=== PATIENT | male | born 1990 | race Caucasian/White ===

== ENCOUNTER 2024-03-04 17:57 | Inpatient (IN) | payer OTHER, SELFPAY ==
[2024-03-04 11:29] VITALS: BP 134/92
[2024-03-04 11:43] VITALS: BMI 23.1
--- NOTE | 2024-03-04 13:54 | ED.GENMED ---
History of Present Illness
<Zack Merida Jr., PA-C - Last Filed: 03/05/24 09:18>
General
Chief Complaint: Skin Problem
Source: patient and physician
Exam Limitations: none
Time Seen by Provider: 03/04/24 12:27
Nursing documentation reviewed up to this point in time: agreed with
History of Present Illness
History of Present Illness:
33-year-old male past with history of ADHD depression and substance abuse presenting to the emergency department today with concerns of potential infection to his bilateral soles of his feet that occurred after he stepped on a large amount of thorns
and a thorn johnson went to his primary care doctor few days ago where they tried to take most of the thorns out and started him on Keflex he has been taking this over the past 3 days. He is noted some redness swelling warmth and additional discomfort
to the area. He has been walking.
Past History
<Zack Merida Jr., PA-C - Last Filed: 03/05/24 09:18>
Past History
ED Past Medical History: Psychiatric (ADHD, depression, sleep disorder)
ED Past Surgical History: None
Patient has exhibited threatening behavior?: No
Social History
Tobacco: Non-smoker
Alcohol: Occasional
Drug: Marijuana
Review of Systems
<Zack Merida Jr., PA-C - Last Filed: 03/05/24 09:18>
Review of Systems
Allergies reviewed?: Yes
All Other Systems: ROS reviewed and negative except as documented in HPI and ROS
Phy Exam
<Zack Merida Jr., PA-C - Last Filed: 03/05/24 09:18>
Physical Exam
Physical Exam:
GENERAL: Alert , in no apparent distress
EYE: pupils equal and reactive
NECK: Supple, no significant adenopathy.
ENT: o/p clr, mmm.
CARDIAC: Regular rate and rhythm .
LUNGS: Clear breath sounds bilaterally, no acute respiratory distress, no wheezes/rales/rhonchi
ABDOMEN: Soft, without focal tenderness, no r/g, no cvat
NEUROLOGICAL: Alert and oriented, no focal neuro deficits
SKIN: Warm and dry, skin intact.
MUSCULOSKELETAL: No edema, well perfused.
PSYCH: Normal and appropriate interaction.
Patient's left foot on the sole at the midportion of the foot has an area of roughly 3 cm in diameter redness and warmth as well as tenderness with no specific fluctuance or induration centralized area with some skin breakdown no active purulent
drainage. Few smaller areas of redness with mild tenderness at site of what appears to be foreign body potentially the thorn that was described. Additionally on the patient's right foot at the midfoot there is a small area roughly 1 cm in diameter
with a central foreign body that is red warm and tender to palpation. No purulent drainage.
Course
<Zack Merida Jr., PA-C - Last Filed: 03/05/24 09:18>
Orders/Labs/Results
Orders:
Orders
03/04/24 Lunch
Regular
At Your Request: Full Participation
Does patient need a safe tray?: No
03/04/24 13:08
Low Ext No Joint, Left W/O and With MR [MR Ltle No Joint W/o And With] Urgent
Comment:
Reason For Exam: Bilateral foot infections/foreign bodies w and w/o
Recent pill cam endoscopy?: No
03/04/24 13:10
Low Ext No Joint, Right W/O And With MR [MR Rtle No Joint W/o And With] Urgent
Comment:
Reason For Exam: Bilateral foot infections/foreign bodies w and w/o
Recent pill cam endoscopy?: No
03/04/24 13:59
Alcohol Urgent
CBC/With Diff [Complete Blood Count/With Diff] Urgent
CMP [Comprehensive Metabolic Panel] Urgent
Glycohemoglobin (HgbA1c) Urgent
03/04/24 14:01
Ampicillin/Sulbactam 3 G [Unasyn] 3 gm 0.9% Sodium Chloride 100 ml [Nss] 100 ml IV NOW
03/04/24 15:37
Add On- LAB Routine
Tests Added?: a1c
03/04/24 16:00
Ampicillin/Sulbactam 3 G [Unasyn] 3 gm 0.9% Sodium Chloride 100 ml [Nss] 100 ml IV Q6H
03/04/24 16:33
Blood Culture Urgent
SHAWNA Source: Blood/Venous
Specimen Description:
03/04/24 17:33
INFECTIOUS DISEASE CONSULT Routine
Consulting Provider: Christine Palomo
Was physician already notified: Yes
Reason for consult: b/l LE cellulitis
03/04/24 17:41
Blood Culture Routine
SHAWNA Source: Blood/Venous
Specimen Description:
03/04/24 17:44
Admit/Transfer Patient As Directed
Co-Sign Provider:
Level of Care: Inpatient admission
Assign to:: Medical/Surgical
Physician / Group: Hospitalist
Diagnosis: LE cellulitis
Reason for Hospitalization: LE cellulitis with foreign body
Expected length of stay greater than two midnights?: Yes
ELOS- Estimated Length of Stay in days: 2
I certify the patient meets the requirements for IP care: Yes
PRN Pain Medication Management As Directed
May give lesser potent ordered pain med per pt: Yes
preference::
Protocol:: Medication orders for pain may be administered in a
manner that supports deferring to patient preference
when the pt is:
- Requesting an ordered lesser potent pain medication.
Least to most potent pain medications are defined
as: acetaminophen < NSAID < tramadol < opioids
(morphine, oxycodone, hydromorphone).
- Requesting a lesser dose of the same medication IF
ORDERED.
- Requesting a less intrusive route of administration
if both routes are prescribed by the provider (PO <
IV).
03/04/24 17:46
Code Status As Directed
Resuscitation Status: Full Code
03/04/24 17:53
PODIATRY CONSULT Routine
Consulting Provider: Arron Ackerman
Was physician already notified: Yes
Reason for consult: LE foreign bodies
03/04/24 18:00
Ampicillin/Sulbactam 3 G [Unasyn] 3 gm 0.9% Sodium Chloride 100 ml [Nss] 100 ml IV Q6H
03/04/24 18:24
Acetaminophen [Tylenol] 650 mg PO Q4HPRN PRN
Alprazolam [Xanax] 0.5 mg PO Q6HPRN PRN
Bisacodyl [Dulcolax] 10 mg RECTAL [id number] PRN
Docusate W/Senna [Senokot-S] 1 tablet PO BIDPRN PRN
Enoxaparin Sodium [Lovenox] 40 mg SC QPM
Ondansetron Injectable [Zofran] 4 mg IV Q8HPRN PRN
Oxycodone [Roxicodone] 5 mg PO Q4HPRN PRN
Polyethylene Glycol Powder [Miralax] 17 grams PO DAILYPRN PRN
03/04/24 18:24
PSYCHIATRY CONSULT Routine
Consulting Provider: Adia Alfonso
Was physician already notified: Yes
Reason for consult: anxiety
Activity As Directed
Activity Level: Out of Bed-Early Mobility
Vital Signs As Directed
Frequency: Per unit guidelines
DX Deep Vein Thrombosis Video Routine
03/04/24 20:00
Clonidine [Catapres] 0.1 mg PO BID
03/04/24 22:00
Gabapentin [Neurontin] 100 mg PO TID
Melatonin 3 mg PO HS
Mirtazapine [Remeron] 15 mg PO HS
03/05/24 07:18
Complete Blood Count/With Diff IN AM
03/05/24 08:00
Methylphenidate HCl [Ritalin] 20 mg PO BID@0800,1300
Abnormal Lab Results
03/04/24
13:59
MCH 31.5 H pg
(27.0-31.0)
Abs Immat Gran (auto) 0.1 H 10^3/uL
(0-0.05)
Absolute Monos (auto) 0.7 H 10^3/uL
(0.1-0.6)
Immature Gran % 0.7 H %
(0-0.5)
Glucose 101 H mg/dl
(70-99)
03/04/24 13:59
03/04/24 13:59
Vital Signs
Initial and Last Documented VS:
Initial Vital Signs
Temp Pulse Resp BP Pulse Ox
98.2 F 70 18 134/92 98
03/04/24 11:29 03/04/24 11:29 03/04/24 11:29 03/04/24 11:29 03/04/24 11:29
Last Documented Vital Signs
Temp Pulse Resp BP Pulse Ox
97.8 F 64 16 121/66 98
03/05/24 07:40 03/05/24 07:40 03/05/24 07:40 03/05/24 07:40 03/05/24 07:40
Robertlt;Spenser Frazier PA-C - Last Filed: 03/04/24 17:05>
Orders/Labs/Results
Orders:
Orders
03/04/24 Lunch
Regular
At Your Request: Full Participation
Does patient need a safe tray?: No
03/04/24 13:08
Low Ext No Joint, Left W/O and With MR [ Ltle No Joint W/o And With] Urgent
Comment:
Reason For Exam: Bilateral foot infections/foreign bodies w and w/o
Recent pill cam endoscopy?: No
03/04/24 13:10
Low Ext No Joint, Right W/O And With MR [ Rtle No Joint W/o And With] Urgent
Comment:
Reason For Exam: Bilateral foot infections/foreign bodies w and w/o
Recent pill cam endoscopy?: No
03/04/24 13:59
Alcohol Urgent
CBC/With Diff [Complete Blood Count/With Diff] Urgent
CMP [Comprehensive Metabolic Panel] Urgent
Glycohemoglobin (HgbA1c) Urgent
03/04/24 14:01
Ampicillin/Sulbactam 3 G [Unasyn] 3 gm 0.9% Sodium Chloride 100 ml [Nss] 100 ml IV NOW
03/04/24 15:37
Add On- LAB Routine
Tests Added?: a1c
03/04/24 16:00
Ampicillin/Sulbactam 3 G [Unasyn] 3 gm 0.9% Sodium Chloride 100 ml [Nss] 100 ml IV Q6H
03/04/24 16:33
Blood Culture Urgent
SHAWNA Source: Blood/Venous
Specimen Description:
03/04/24 17:33
INFECTIOUS DISEASE CONSULT Routine
Consulting Provider: Christine Palomo
Was physician already notified: Yes
Reason for consult: b/l LE cellulitis
03/04/24 17:41
Blood Culture Routine
SHAWNA Source: Blood/Venous
Specimen Description:
03/04/24 17:44
Admit/Transfer Patient As Directed
Co-Sign Provider:
Level of Care: Inpatient admission
Assign to:: Medical/Surgical
Physician / Group: Hospitalist
Diagnosis: LE cellulitis
Reason for Hospitalization: LE cellulitis with foreign body
Expected length of stay greater than two midnights?: Yes
ELOS- Estimated Length of Stay in days: 2
I certify the patient meets the requirements for IP care: Yes
PRN Pain Medication Management As Directed
May give lesser potent ordered pain med per pt: Yes
preference::
Protocol:: Medication orders for pain may be administered in a
manner that supports deferring to patient preference
when the pt is:
- Requesting an ordered lesser potent pain medication.
Least to most potent pain medications are defined
as: acetaminophen < NSAID < tramadol < opioids
(morphine, oxycodone, hydromorphone).
- Requesting a lesser dose of the same medication IF
ORDERED.
- Requesting a less intrusive route of administration
if both routes are prescribed by the provider (PO <
IV).
03/04/24 17:46
Code Status As Directed
Resuscitation Status: Full Code
03/04/24 17:53
PODIATRY CONSULT Routine
Consulting Provider: Arron Ackerman
Was physician already notified: Yes
Reason for consult: LE foreign bodies
03/04/24 18:00
Ampicillin/Sulbactam 3 G [Unasyn] 3 gm 0.9% Sodium Chloride 100 ml [Nss] 100 ml IV Q6H
03/04/24 18:24
Acetaminophen [Tylenol] 650 mg PO Q4HPRN PRN
Alprazolam [Xanax] 0.5 mg PO Q6HPRN PRN
Bisacodyl [Dulcolax] 10 mg RECTAL [id number] PRN
Docusate W/Senna [Senokot-S] 1 tablet PO BIDPRN PRN
Enoxaparin Sodium [Lovenox] 40 mg SC QPM
Ondansetron Injectable [Zofran] 4 mg IV Q8HPRN PRN
Oxycodone [Roxicodone] 5 mg PO Q4HPRN PRN
Polyethylene Glycol Powder [Miralax] 17 grams PO DAILYPRN PRN
03/04/24 18:24
PSYCHIATRY CONSULT Routine
Consulting Provider: Adia Alfonso
Was physician already notified: Yes
Reason for consult: anxiety
Activity As Directed
Activity Level: Out of Bed-Early Mobility
Vital Signs As Directed
Frequency: Per unit guidelines
DX Deep Vein Thrombosis Video Routine
03/04/24 20:00
Clonidine [Catapres] 0.1 mg PO BID
03/04/24 22:00
Gabapentin [Neurontin] 100 mg PO TID
Melatonin 3 mg PO HS
Mirtazapine [Remeron] 15 mg PO HS
03/05/24 07:18
Complete Blood Count/With Diff IN AM
03/05/24 08:00
Methylphenidate HCl [Ritalin] 20 mg PO BID@0800,1300
Abnormal Lab Results
03/04/24
13:59
MCH 31.5 H pg
(27.0-31.0)
Abs Immat Gran (auto) 0.1 H 10^3/uL
(0-0.05)
Absolute Monos (auto) 0.7 H 10^3/uL
(0.1-0.6)
Immature Gran % 0.7 H %
(0-0.5)
Glucose 101 H mg/dl
(70-99)
03/04/24 13:59
03/04/24 13:59
Vital Signs
Initial and Last Documented VS:
Initial Vital Signs
Temp Pulse Resp BP Pulse Ox
98.2 F 70 18 134/92 98
03/04/24 11:29 03/04/24 11:29 03/04/24 11:29 03/04/24 11:29 03/04/24 11:29
Last Documented Vital Signs
Temp Pulse Resp BP Pulse Ox
97.8 F 64 16 121/66 98
03/05/24 07:40 03/05/24 07:40 03/05/24 07:40 03/05/24 07:40 03/05/24 07:40
<Zack Merida Jr., PA-C - Last Filed: 03/05/24 09:18>
MDM/Problems Addressed
MDM/Problems Addressed:
33-year-old male presenting to the emergency department today with concerns of increasing discomfort to his feet bilaterally left-sided worse than the right 1 week after walking in a thorn johnson a large amount of thorn stuck in his feet. He went to
see his primary care doctor few days ago where they removed many of the dorms and started him on Keflex. He has not had. Denies systemic no fevers normal vital signs on arrival labs unremarkable. Case was discussed with infectious disease that
recommended IV antibiotics and an MRI for further assessment. They recommended he get admitted to the hospital for further monitoring and potential debridement as needed.
<Spenser Frazier PA-C - Last Filed: 03/04/24 17:05>
*Critical Care Note
Total Time (30-74mins, 75-104mins- exclusive of procedures): Not Applicable
<CLAUDIA Rosen Last Filed: 03/04/24 17:05>
Update Note
Update Note:
Received care of patient upon signout pending MRIs of both feet. Patient has multiple forms in the feet and has infection of his feet despite oral antibiotics. Had discussion with patient. Will admit patient to hospital for multiple retained
foreign bodies in the feet. Infectious disease aware
ED Attending Note
<Zack Merida Jr., PA-C - Last Filed: 03/05/24 09:18>
-
Portions of this chart may have been created with voice recognition software.� Occasional wrong word or��sound alike� substitutions may have occurred due to the inherent limitations of voice recognition software.
Discharge Plan
Departure
Patient Disposition: Admit
Date of Disposition: 03/04/24
Time of Disposition: 17:04
Admit to: Med/Surg
Presentation/result/management discussed w/ accepting MD/DO: Hospitalist
Patient with high blood pressure during this ER visit?: No
Condition: Good
Covid-19: Not Applicable
Discharge Problem:
Foot infection, Infected splinter of foot
Interventions
Interventions:
*Risk Screen - Suicide Last Done: 03/04/24 18:28
*General Assessment Last Done: 03/04/24 11:29
*Neglect/Abuse Screening Last Done: 03/04/24 11:29
ED- Fall Risk Assessment Last Done: 03/04/24 16:39
*ED COVID-19 Vaccine History Last Done: 03/04/24 18:28
*Nursing Disposition Last Done: 03/04/24 18:29
ED-Skin Assessment Last Done: 03/04/24 15:11
Discharge Date and Time
Discharge Date/Time: 03/04/24 18:29
[2024-03-04 14:09] LABS: % Basophils 0.9 % (0-2); % Eosinophils 3.4 % (0-6); % Immature Granulocytes 0.7 % (0-0.5); % Lymphocytes 30.3 % (20.5-51.1); % Monocytes 7.6 % (1.7-9.3); % Neutrophils 57.1 % (42.2-75.2); Absolute Basophils 0.1 10^3/uL (0-0.2); Absolute Eosinophils 0.3 10^3/uL (0-0.7); Absolute Immature Granulocytes 0.1 10^3/uL (0-0.05); Absolute Lymphocytes 2.6 10^3/uL (1.2-3.4); Absolute Monocytes 0.7 10^3/uL (0.1-0.6); Absolute Neutrophils 4.9 10^3/uL (1.4-6.5); Hematocrit 45.1 % (39.0-52.0); Hemoglobin 16.2 g/dL (13.0-18.0); Mean Corp Hgb Conc. 35.9 g/dL (33.0-37.0); Mean Corpuscular Hgb 31.5 pg (27.0-31.0); Mean Corpuscular Volume 87.6 fL (80.0-94.0); Mean Platelet Volume 9.2 fL (7.4-10.4); Nucleated Red Blood Cells % 0 % (-); Platelet Count 266 10^3/uL (130-400); Red Blood Cell Count 5.15 10^6/uL (4.70-6.10); Red Cell Dist. Width 12.7 % (11.5-14.5); White Blood Cell Count 8.6 10^3/uL (4.8-10.8)
[2024-03-04 14:22] LABS: ALT (SGPT) 36 U/L (0-50); AST (SGOT) 32 U/L (17-59); Albumin 4.8 g/dl (3.5-5.0); Alkaline Phosphatase 51 U/L (38-126); Blood Urea Nitrogen 15 mg/dl (9-20); Calcium 9.8 mg/dl (8.4-10.2); Carbon Dioxide 27 mmol/L (22-30); Chloride 102 mmol/L (98-107); Estimated Creatinine Clearance > 125 ml/min; Glucose 101 mg/dl (70-99); Potassium 4.6 mmol/L (3.5-5.1); Sodium 138 mmol/L (135-145); Total Bilirubin 0.5 mg/dl (0.2-1.3); Total Protein 7.3 g/dl (6.3-8.2); eGFR > 60.00
[2024-03-04] MEDS: UNASYN IV ×3 (14:25→22:15)
--- NOTE | 2024-03-04 15:29 | CON.ID ---
Consultation
-
Date/Time Consultation Requested: 03/04/24 12:51
Date/Time Consultation Performed: 03/04/24 15:29
Requesting Provider: Fuad GARRETT
Performing Provider: Dr Palomo
Reason for Consultation: infected foregin bodies
Chief Complaint / Past History
Chief Complaint
purulent drainage from the feet
History of Present Illness
Mr Avery is a 33 year old male with history of substance abuse who presents here from his PCP's office for infected foreign bodies embedded in the bilateral feet. Mr Avery was at a wedding in [place], admits to being intoxicated, and felt into a thorn
johnson feet first. He was seen by MD in [place], however foreign bodies were not removed and severe pain was ongoing. He the presented to his PCP on 03/02 and had over 60 thorns removed by his PCP Dr Dooley and her partner. He was initially
started on keflex which he took however with increasing pain, tenderness and new purulent drainage from the feet. No fevers or chills. Myself, Dr Caceres (podiatry) and Dr Dooley have been in communication and it was collectively decided to
refer patient to the ER to expedite MRI and start IV antibiotics
Since arrival here he has been afebrile, bp stable, wbc 8.6, hgb 16, plt 266, no left shift, cr 0.8, glucose 101, t bili 0.5, ast 32, alt 36, alk phos 51, no imaging completed yet, patient had a single dose of unasyn, I have recommended admission to
both Fuad GARRETT and attending Dr Turner.
Past History
Additional Past Medical History:
ADHD, depression, sleep disorder
Past Surgical History: None
Allergy History:
No Known Allergies Allergy (Verified 08/14/19 19:14)
Medications Reviewed: Yes
Social History
Tobacco: Non-Smoker
Alcohol: Occasional
Drug: Marijuana
Family History
Family History: Not Pertinent
Review of Systems
Review of Systems
General: Negative Fever or Chills
All systems: All other systems were reviewed and were negative
Vital Signs
Temp Pulse Resp BP Pulse Ox
98.2 F 70 18 134/92 98
03/04/24 11:29 03/04/24 11:29 03/04/24 11:29 03/04/24 11:29 03/04/24 11:29
Physical Exam
Physical Exam
Constitutional: No Acute Distress
Cardiovascular: Regular Rate and S1/S2; Negative Murmur or Rub
Pulmonary: Clear and Symmetric; Negative Wheezes, Rales or Rhonchi
Gastrointestinal: Soft, Non Tender, Non Distended and Normal Bowel Sounds
Skin: Warm and Dry; Negative Rash or Jaundice
Wound: Other (multiple visible thorns visible in the SQ tissues, two small boggy areas of likely phlegmon - one has drained puss per patient)
Lab / Diagnostic Study Results
03/04/24 13:59
03/04/24 13:59
Abs Immat Gran (auto) 0.1 10^3/uL (0-0.05) H 03/04/24 13:59
Absolute Neuts (auto) 4.9 10^3/uL (1.4-6.5) 03/04/24 13:59
Absolute Lymphs (auto) 2.6 10^3/uL (1.2-3.4) 03/04/24 13:59
Absolute Monos (auto) 0.7 10^3/uL (0.1-0.6) H 03/04/24 13:59
Absolute Basos (auto) 0.1 10^3/uL (0-0.2) 03/04/24 13:59
Immature Gran % 0.7 % (0-0.5) H 03/04/24 13:59
Neutrophils % 57.1 % (42.2-75.2) 03/04/24 13:59
Lymphocytes % 30.3 % (20.5-51.1) 03/04/24 13:59
Monocytes % 7.6 % (1.7-9.3) 03/04/24 13:59
Eosinophils % 3.4 % (0-6) 03/04/24 13:59
Basophils % 0.9 % (0-2) 03/04/24 13:59
Assessment / Plan
Abscesses and Cellulitis related to foreign bodies of the bilateral feet
Hyperglycemia
Substance abuse
- blood cultures x2
- urgent MRI of the bilateral feet
- continue unasyn - I ordered
- check a1c
- HIV screen - has never been screened- patient gives consent
- if foreign body and/or abscess IDd as expected, would need inpatient podiatry assessment
- discussed with Dr Dooley same day
[2024-03-04 16:26] LABS: Alcohol None Detected
--- NOTE | 2024-03-04 17:49 | HPS.HSE ---
Family Physician
-
Family Physician: Mira Tsai PA-C
Chief Complaint
-
swelling and pain with trauma to b/l soles
History of Present Illness
33yo M with PMHx of seizure d/o, anxiety came after he stepped on the thorns 1 week ago, his PCP took most thorns out, however he developed couple of sports with pain and redness. there are few areas with inflammation and central foreign body on
both soles. No fevers noted. As per ED communication with ID - started Unasyn
ALso c/o long standing HX of anxiety that he is medicating with marijuana
Medical History
Past Medical History
Past Medical History: Reports Other
Additional Past Medical History:
see HPI
Past Surgical History: Reports None
Social History
Tobacco: Vaping
Alcohol: Occasional
Drug: Marijuana
Family History
Family History: Not pertinent
Allergies / Home Medications
Allergies reflects when Allergies were last updated in [facility].
Home Medications with original date entered in [facility]
Allergy/Medication List:
Allergies
Allergy/AdvReac Type Severity Reaction Status Date / Time
No Known Allergies Allergy Verified 08/14/19 19:14
Home Medications
cephalexin 500 mg capsule 500 mg PO QID #39 caps 07/10/18
Medical Marijuana 2 puff inhalation DAILY 03/04/24
clonidine HCl 0.1 mg tablet 0.1 mg PO BID 03/04/24
gabapentin 100 mg capsule 100 mg PO TID 03/04/24
melatonin 3 mg tablet 3 mg PO HS 03/04/24
methylphenidate HCl 20 mg tablet 20 mg PO BID 03/04/24
mirtazapine 15 mg tablet 15 mg PO HS 03/04/24
Review of Systems
-
History Source: Patient
A 12 point ROS was completed and negative except as noted: Yes
Physical Exam
Vital Signs
Vital Signs
Temp Pulse Resp BP Pulse Ox
98.2 F 70 18 134/92 98
03/04/24 11:29 03/04/24 11:29 03/04/24 11:29 03/04/24 11:29 03/04/24 11:29
Physical Exam
General: No Apparent Distress
HEENT: NormoCephalic
Respiratory: Clear; No Wheezes or Rales
Cardiac: S1/S2 and Regular Rhythm
GI: Soft, Non Tender and Non Distended
Musculoskeletal: No Clubbing, No Cyanosis and No Edema
Skin: Warm
Neuro: Awake, Alert, Oriented and AO x 3
Psych: Calm
Laboratory Results
-
03/04/24 13:59
03/04/24 13:59
Laboratory Results
Total Bilirubin 0.5 mg/dl (0.2-1.3) 03/04/24 13:59
AST 32 U/L (17-59) 03/04/24 13:59
ALT 36 U/L (0-50) 03/04/24 13:59
Alkaline Phosphatase 51 U/L (38-126) 03/04/24 13:59
Impression/Plan
-
A/P
#B/L LE cellulitis with foreign bodies
Unasyn
Bcx
ID consult
Podiatry consult (apprently was seen by someone in ED, however no notes exist)
MRI done in ED - no concern for abscess
#Anxiety
Xanax PRN
Psych consult
#Seizure d/o
Seizure precautions
cont home meds
#Nicotine use
vaping
declined Nicoderm
DVT ppx lovenox
Full code
I have spent at least 78min reviewing chart, test results, communication with consultants and direct patient care
[2024-03-04 18:32] VITALS: BP 140/92; BMI 23.5
[2024-03-04] MEDS: LOVENOX 40 MG SC (20:03)
[2024-03-04] MEDS: CATAPRES 0.1 MG PO (20:04)
--- NOTE | 2024-03-04 21:02 | CON.SURG ---
Surgical Consultation
-
Chief Complaint
-
Bilateral foot foreign bodies/infections
History of Present Illness
33yo M with PMHx of seizure d/o, anxiety came after he stepped on the thorns 1 week ago, his PCP took many of the thorns out, however he developed couple of sports with pain and redness. there are few areas with inflammation and central foreign body
on both soles. No fevers noted. As per ED communication with ID - started Unasyn
ALso c/o long standing HX of anxiety that he is medicating with marijuana
Medical History
Past Medical History
Past Medical History: Reports Other
Additional Past Medical History:
see HPI
Past Surgical History: Reports None
Social History
Tobacco: Vaping
Alcohol: Occasional
Drug: Marijuana
Family History
Family History: Not pertinent
Allergies / Home Medications
Allergies reflects when Allergies were last updated in [facility].
Home Medications with original date entered in [facility]
Allergy/Medication List:
Allergies
Allergy/AdvReac Type Severity Reaction Status Date / Time
No Known Allergies Allergy Verified 08/14/19 19:14
Home Medications
cephalexin 500 mg capsule 500 mg PO QID #39 caps 07/10/18
Medical Marijuana 2 puff inhalation DAILY 03/04/24
clonidine HCl 0.1 mg tablet 0.1 mg PO BID 03/04/24
gabapentin 100 mg capsule 100 mg PO TID 03/04/24
melatonin 3 mg tablet 3 mg PO HS 03/04/24
methylphenidate HCl 20 mg tablet 20 mg PO BID 03/04/24
mirtazapine 15 mg tablet 15 mg PO HS 03/04/24
Review of Systems
-
History Source: Patient
A 12 point ROS was completed and negative except as noted: Yes
Physical Exam
Vital Signs
Vital Signs
Temp Pulse Resp BP Pulse Ox
98.2 F 70 18 134/92 98
03/04/24 11:29 03/04/24 11:29 03/04/24 11:29 03/04/24 11:29 03/04/24 11:29
Physical Exam
General: No Apparent Distress
HEENT: NormoCephalic
Respiratory: Clear; No Wheezes or Rales
Cardiac: S1/S2 and Regular Rhythm
GI: Soft, Non Tender and Non Distended
Musculoskeletal: No Clubbing, No Cyanosis and No Edema
Skin: Warm
Neuro: Awake, Alert, Oriented and AO x 3
Psych: Calm
Lower Extremity Exam
-DP/PT pulses are 2/4 BL. Capillary refill < 3 seconds BL
-Diffuse bilateral plantar pinpoint puncture holes with underlying thorns
-Mild surrounding erythema
-Left foot with plantar fibrogranular wound with no deep probing, crepitus, or fluctuance
Laboratory Results
-
03/04/24 13:59
03/04/24 13:59
Laboratory Results
Total Bilirubin 0.5 mg/dl (0.2-1.3) 03/04/24 13:59
AST 32 U/L (17-59) 03/04/24 13:59
ALT 36 U/L (0-50) 03/04/24 13:59
Alkaline Phosphatase 51 U/L (38-126) 03/04/24 13:59
Impression/Plan
33 year old male with bilateral plantar foot foreign bodies from thorns with associated soft tissue inflammation/infection
-Patient seen and evaluated at bedside
-Appreciate ID recommendations
-Follow up MRI results
-Tentatively plan for operative debridement early next week pending clinical progress
-Podiatry will continue to follow
[2024-03-04] MEDS: NEURONTIN 100 MG PO (22:14)
[2024-03-04] MEDS: MELATONIN 3 MG PO (22:14)
[2024-03-04] MEDS: REMERON 15 MG PO (22:14)
[2024-03-04] MEDS: XANAX 0.5 MG PO (22:14)
[2024-03-04 23:00] VITALS: BP 97/58
[2024-03-05] MEDS: UNASYN IV ×4 (04:10→22:10)
[2024-03-05] MEDS: XANAX 0.5 MG PO ×4 (04:18→22:55)
[2024-03-05 07:40] VITALS: BP 121/66
[2024-03-05 08:25] LABS: % Basophils 0.9 % (0-2); % Eosinophils 4.5 % (0-6); % Immature Granulocytes 0.5 % (0-0.5); % Lymphocytes 35.4 % (20.5-51.1); % Monocytes 8.6 % (1.7-9.3); % Neutrophils 50.1 % (42.2-75.2); Absolute Basophils 0.1 10^3/uL (0-0.2); Absolute Eosinophils 0.4 10^3/uL (0-0.7); Absolute Immature Granulocytes 0.1 10^3/uL (0-0.05); Absolute Lymphocytes 3.4 10^3/uL (1.2-3.4); Absolute Monocytes 0.8 10^3/uL (0.1-0.6); Absolute Neutrophils 4.8 10^3/uL (1.4-6.5); Hematocrit 43.1 % (39.0-52.0); Hemoglobin 15.4 g/dL (13.0-18.0); Mean Corp Hgb Conc. 35.7 g/dL (33.0-37.0); Mean Corpuscular Hgb 33.3 pg (27.0-31.0); Mean Corpuscular Volume 93.1 fL (80.0-94.0); Mean Platelet Volume 9.6 fL (7.4-10.4); Nucleated Red Blood Cells % 0 % (-); Platelet Count 248 10^3/uL (130-400); Red Blood Cell Count 4.63 10^6/uL (4.70-6.10); Red Cell Dist. Width 12.8 % (11.5-14.5); White Blood Cell Count 9.5 10^3/uL (4.8-10.8)
[2024-03-05] MEDS: CATAPRES 0.1 MG PO ×2 (08:40→19:55)
[2024-03-05] MEDS: RITALIN 20 MG PO ×2 (08:40→12:26)
[2024-03-05] MEDS: NEURONTIN 100 MG PO (08:40)
[2024-03-05 09:05] LABS: Glycohemoglobin (HgbA1c) 4.7 % (4.0-5.6)
--- NOTE | 2024-03-05 09:12 | W.PN.HOSP.TC ---
Today's Communication/Plan
-
cont Unasyn, pending I&D, possibly on Sun-Mon
pscyh consult - patient declined to decrease dose of Aderral
Assessment / Plan
Assessment / Plan
33yo M with PMHx of seizure d/o, anxiety came after he stepped on the thorns 1 week ago, his PCP took most thorns out, however he developed couple of sports with pain and redness. there are few areas with inflammation and central foreign body on
both soles. No fevers noted. As per ED communication with ID - started Unasyn
Also c/o long standing HX of anxiety that he is medicating with marijuana
A/P:
#B/L LE cellulitis with foreign bodies
Unasyn
Bcx NTD
ID consult: advised IV unasyn pending I&D
Podiatry consult: planning for I&D
MRI done in ED - no concern for abscess
#Anxiety
Xanax PRN
Psych consult
#Seizure d/o
Seizure precautions
cont home meds
#Nicotine use
vaping
declined Nicoderm
DVT ppx lovenox
Full code
I have spent at least 38min reviewing chart, test results, communication with consultants and direct patient care
Anticipated Discharge: > 48 hours
Subjective/Interval History
-
Date of Service: March 05, 2024
Objective Data
-
Labs:
Laboratory Results
03/05/24
07:18
WBC 9.5
Hgb 15.4
Hct 43.1
Plt Count 248
Vital Signs:
Vital Signs
Temp Pulse Resp BP Pulse Ox
97.8 F 64 16 121/66 98
03/05/24 07:40 03/05/24 07:40 03/05/24 07:40 03/05/24 07:40 03/05/24 07:40
I&O
03/04/24 03/05/24 03/06/24
06:59 06:59 06:59
Intake Total 240 / 240
Balance 240 / 240
Review of Systems
-
History Source: Patient
All other systems: Reviewed and negative
Physical Exam
-
General: No Apparent Distress
HEENT: Normocephalic
Respiratory: Clear to Auscultation
Cardiac: Regular Rhythm; Negative Murmur
Psych: Calm
[2024-03-05 09:44] LABS: HIV Combo Negative (Negative)
--- NOTE | 2024-03-05 10:49 | W.PN.UPDATE ---
Update Note
Progress Note Update
Patient with numerous bilateral foreign bodies with localized reactions
-MRIs negative
--- NOTE | 2024-03-05 11:07 | CS.PSYCHR ---
Consult Summary - Psychiatry
-
Psychiatry consult for anxiety management. 33 yo male with history of anxiety and ADHD admitted 03/04 for b/l sole pain, swelling and redness after walking through thorns. Patient admits he was intoxicated at a wedding in [facility] when this
occurred. He reports a long history of anxiety with intermitted panic attacks and sleep difficulty. He states he gets medical marijuana for this condition. Additionally he has a prescriber at [facility] who he has seen for the past 6 months and treats him
with the following medications: clonidine 0.1mg BID, gabapentin 100mg TID, melatonin 3mg HS, remeron 15mg HS and Ritalin 20mg BID. He reports tolerating this regimen well without side effects. He says ADHD is controlled with Ritalin. He denies that
this medication contributes to his anxiety and that if anything it helps his anxiety when he is able to focus and complete tasks. He sleeps better with remeron and melatonin but does not think clonidine/gabapentin are helping his anxiety. We
discussed that gabapentin dose is low and likely subtherapeutic. He also reports panic attacks which have occurred in the hospital, on flights etc. He says PRN xanax has helped with this in the hospital. Explained that this is not a fdc
solution and reviewed the risks associated with benzo use. He understands. We discussed a trial of atarax PRN as an alternative. He is agreeable to a trial.
MSE- good eye contact. fluent speech. logical and goal directed. anxious mood. normal range of affect. denies SI/HI/AVH. no delusions. fair I/J. fully oriented
Past psych- see above. Sees Keisha at [facility] for med management. No past suicide attempts. was admitted at [facility] in 2019 after several days of not sleeping and visual hallucinations
D&A- some heavy alcohol use in the past. denies recent heavy use. last drink was at wedding last week. was at a detox/rehab in the past. denies other drugs. uses medical marijuana.
Social- lives alone. has family support. works at [employer]. no children. denies legal issues
family hx- siblings with ADHD
A/P- 33yo male with generalized anxiety disorder, panic disorder, and ADHD. Continue Remeron, melatonin, clonidine and Ritalin (denies this worsens anxiety or sleep) at current doses for now. Increase gabapentin dose to 200mg TID. Start trial of
Atarax 50mg TID PRN anxiety to see how patient responds in the hospital. Xanax PRN is ok while here but not fdc plan and should not be included in discharge regimen. Do not combine the two. He has follow up scheduled next week with his
psychiatric provider at [facility] who can resume management of medications. Will follow up with him tomorrow to see how he has done with above changes.
--- NOTE | 2024-03-05 12:28 | CM ---
Initial assessment completed with pt at bedside.
Pt is a 33yr old male admitted for lower extremety cellulitis.
Pt is indep at baseline and working. Pt has [facility] paperwork that he has requested be filled out.
Pt has no equip, or hx with VN/SNF.
PCP; Mira Tsai
Pharm; Jarek Irvin
Plan; Dc with no needs identified [facility] paperwork requested
--- NOTE | 2024-03-05 13:11 | W.PN.ID1 ---
Date of Service
Date of Service: March 05, 2024
Today's Communication
appreciate podiatry input, feel he would benefit from continued IV therapy at this time pending possible debridement thursday; alternatively if podiatry plans outpatient debridement could switch to Augmentin for two weeks
Assessment / Plan
Abscesses and Cellulitis related to foreign bodies of the bilateral feet
Hyperglycemia
Substance abuse
- blood cultures x2 in progress no growth to date
- MRIs of the feet with phlegmon but no definite abscess yet; bone marrow edema noted
- continue unasyn - I ordered
- a1c normal
- HIV screen negative
- appreciate podiatry input, feel he would benefit from continued IV therapy at this time pending possible debridement thursday; alternatively if podiatry plans outpatient debridement could switch to Augmentin for two weeks
Chief Complaint
-: Other (cellulitis of foot due to foreign bodies)
Subjective / Review of Systems
afebrile
bp stable
reports marked improvement in the R foot, still quite tender in the left
Vital Signs / Physical Exam
Vital Signs
Vital Signs
Temp Pulse Resp BP Pulse Ox
97.8 F 64 16 121/66 98
03/05/24 07:40 03/05/24 07:40 03/05/24 07:40 03/05/24 07:40 03/05/24 07:40
Physical Exam
Constitutional: No Acute Distress
Cardiovascular: Regular Rate and S1/S2; Negative Murmur or Rub
Pulmonary: Clear and Symmetric; Negative Wheezes or Rales
Gastrointestinal: Soft, Non Tender, Non Distended and Normal Bowel Sounds
Extremities: Other (still with thorns visible bilateral feet, swelling, mild erythema of the bilateral insteps )
Skin: Warm and Dry; Negative Rash or Jaundice
Objective Data
Lab Data
Lab Results
03/05/24 07:18
03/04/24 13:59
Estimated Creat Clear > 125 ml/min 03/04/24 13:59
Total Bilirubin 0.5 mg/dl (0.2-1.3) 03/04/24 13:59
AST 32 U/L (17-59) 03/04/24 13:59
ALT 36 U/L (0-50) 03/04/24 13:59
Alkaline Phosphatase 51 U/L (38-126) 03/04/24 13:59
Most recent labs reviewed.
Micro Results:
03/04/24 17:41 Blood Culture - Pending
Blood/Venous
03/04/24 16:33 Blood Culture - Pending
Blood/Venous
Care Review
Plan reviewed with: Physician (Dr mine morris)
[2024-03-05 15:33] VITALS: BP 104/62
[2024-03-05] MEDS: NEURONTIN 200 MG PO ×2 (16:37→22:10)
[2024-03-05] MEDS: LOVENOX 40 MG SC (17:28)
[2024-03-05] MEDS: MELATONIN 3 MG PO (22:10)
[2024-03-05] MEDS: REMERON 15 MG PO (22:10)
[2024-03-05 23:00] VITALS: BP 140/83
[2024-03-06] MEDS: UNASYN IV ×4 (03:50→22:08)
[2024-03-06] MEDS: XANAX 0.5 MG PO ×4 (05:06→23:23)
[2024-03-06] MEDS: NEURONTIN 200 MG PO ×3 (07:54→22:08)
[2024-03-06] MEDS: CATAPRES 0.1 MG PO ×2 (07:54→22:09)
[2024-03-06] MEDS: RITALIN 20 MG PO ×2 (07:54→12:08)
[2024-03-06 08:08] VITALS: BP 111/72
--- NOTE | 2024-03-06 12:51 | W.PN.HOSP.TC ---
Today's Communication/Plan
-
cont unasyn
NPO starting 8am tomorrow
Assessment / Plan
Assessment / Plan
33yo M with PMHx of seizure d/o, anxiety came after he stepped on the thorns 1 week ago, his PCP took most thorns out, however he developed couple of sports with pain and redness. there are few areas with inflammation and central foreign body on
both soles. No fevers noted. As per ED communication with ID - started Unasyn, pending I&D by podiatry on 03/07/24 at 4pm
Also c/o long standing HX of anxiety that he is medicating with marijuana, psychiatry recommended Atarax and avoid outpatient BZD
A/P:
#B/L LE cellulitis with foreign bodies
Unasyn
Bcx NTD
ID consult: advised IV unasyn pending I&D, then Augmentin x12 days to complete 2 weeks course as recommended by ID
Podiatry consult: scheduled I&D on 03/07/24 at 4pm. NPO starting 8am same day
MRI done in ED - no concern for abscess, but phlegmon present
#Anxiety
Xanax PRN
Psych consult
#Seizure d/o
Seizure precautions
cont home meds
#Nicotine use
vaping
declined Nicoderm
DVT ppx lovenox
Full code
I have spent at least 38min reviewing chart, test results, communication with consultants and direct patient care
Anticipated Discharge: 24 - 48 hours
Subjective/Interval History
-
Date of Service: March 06, 2024
Objective Data
-
Vital Signs:
Vital Signs
Temp Pulse Resp BP Pulse Ox
97.6 F 69 17 111/72 99
03/06/24 08:08 03/06/24 08:08 03/06/24 08:08 03/06/24 08:08 03/06/24 08:08
I&O
03/05/24 03/06/24 03/07/24
06:59 06:59 06:59
Intake Total 240 / 240 1440 / 1440
Balance 240 / 240 1440 / 1440
Review of Systems
-
History Source: Patient
All other systems: Reviewed and negative
Physical Exam
-
General: No Apparent Distress
HEENT: Normocephalic
Cardiac: Regular Rhythm
GI: Soft, Nontender and Nondistended
Neuro: Awake, Alert, Oriented and AO x 3
--- NOTE | 2024-03-06 14:10 | W.PN.UPDATE ---
Update Note
Progress Note Update
Psychiatry follow up for anxiety. Gabapentin increased to 200mg TID yesterday. Patient reports tolerating the increase well so far without side effects. He has not yet tried PRN Atarax for anxiety but states he would like to try that at home after
discharge. He states he is doing ok so far in the hospital though eager to have procedure done tomorrow so he can go home.
MSE- good eye contact. fluent speech. cooperative. denies anxiety or depression at this time. Denies SI/HI/AVH. no delusions. Fair I/J.
A/P- 33yo male with generalized anxiety disorder, panic disorder, and ADHD. Continue psychiatric medications at current doses. Can give trial of Atarax 50mg daily PRN anxiety (#15) for patient to take home and try prior to his next appt with his [facility]
prescriber. Xanax PRN is ok while here but not salvage determiner plan and should not be included in discharge regimen. Psychiatry will sign off. Please contact team with further questions or concerns.
[2024-03-06 16:01] VITALS: BP 130/74
[2024-03-06] MEDS: LOVENOX 40 MG SC (17:18)
[2024-03-06 22:06] VITALS: BP 108/63
[2024-03-06] MEDS: MELATONIN 3 MG PO (22:08)
[2024-03-06] MEDS: REMERON 15 MG PO (22:08)
[2024-03-07] VITALS (11 sets, daily range): BP systolic 93–141; BP diastolic 50–98
[2024-03-07] MEDS: UNASYN IV ×4 (05:18→22:10)
[2024-03-07] MEDS: XANAX 0.5 MG PO ×3 (05:19→18:33)
[2024-03-07 07:27] LABS: % Basophils 0.9 % (0-2); % Eosinophils 6.5 % (0-6); % Immature Granulocytes 1.2 % (0-0.5); % Monocytes 7.7 % (1.7-9.3); % Neutrophils 44.7 % (42.2-75.2); Absolute Basophils 0.1 10^3/uL (0-0.2); Absolute Eosinophils 0.5 10^3/uL (0-0.7); Absolute Immature Granulocytes 0.1 10^3/uL (0-0.05); Absolute Monocytes 0.6 10^3/uL (0.1-0.6); Absolute Neutrophils 3.5 10^3/uL (1.4-6.5); Hematocrit 46.3 % (39.0-52.0); Hemoglobin 16.6 g/dL (13.0-18.0); Mean Corp Hgb Conc. 35.9 g/dL (33.0-37.0); Mean Corpuscular Hgb 32.5 pg (27.0-31.0); Mean Corpuscular Volume 90.8 fL (80.0-94.0); Mean Platelet Volume 9.3 fL (7.4-10.4); Nucleated Red Blood Cells % 0 % (-); Platelet Count 224 10^3/uL (130-400); Red Cell Dist. Width 12.7 % (11.5-14.5); White Blood Cell Count 7.8 10^3/uL (4.8-10.8)
[2024-03-07] MEDS: CATAPRES 0.1 MG PO ×2 (07:51→19:53)
[2024-03-07] MEDS: NEURONTIN 200 MG PO ×2 (07:51→22:10)
[2024-03-07] MEDS: RITALIN 20 MG PO ×2 (07:51→13:40)
[2024-03-07 07:54] LABS: ALT (SGPT) 31 U/L (0-50); AST (SGOT) 30 U/L (17-59); Albumin 4.1 g/dl (3.5-5.0); Alkaline Phosphatase 47 U/L (38-126); Blood Urea Nitrogen 14 mg/dl (9-20); Calcium 9.4 mg/dl (8.4-10.2); Carbon Dioxide 27 mmol/L (22-30); Chloride 104 mmol/L (98-107); Estimated Creatinine Clearance > 125 ml/min; Glucose 84 mg/dl (70-99); Potassium 4.4 mmol/L (3.5-5.1); Sodium 142 mmol/L (135-145); Total Bilirubin 0.2 mg/dl (0.2-1.3); Total Protein 6.4 g/dl (6.3-8.2); eGFR > 60.00
[2024-03-07] MEDS: FLUSH (NSS) 1 FLUSH IV (10:31)
--- NOTE | 2024-03-07 10:53 | W.PN.ID1 ---
Date of Service
Date of Service: March 07, 2024
Today's Communication
- MRIs of the feet with phlegmon but no definite abscess yet; bone marrow edema noted does not correlate with laceration - will follow up OR note
- continue unasyn pending findings in the OR may consider switch to orals vs home IV antibiotics
- for debridement today
Assessment / Plan
Abscesses and Cellulitis related to foreign bodies of the bilateral feet
Hyperglycemia
Substance abuse
- blood cultures x2 in progress no growth to date
- MRIs of the feet with phlegmon but no definite abscess yet; bone marrow edema noted does not correlate with laceration - will follow up OR note
- continue unasyn pending findings in the OR may consider switch to orals vs home IV antibiotics
- for debridement today
Chief Complaint
-: Other (cellulitis of foot due to foreign bodies)
Subjective / Review of Systems
afebrile
bp stable
Vital Signs / Physical Exam
Vital Signs
Vital Signs
Temp Pulse Resp BP Pulse Ox
97.9 F 70 21 123/82 95
03/07/24 07:45 03/07/24 07:51 03/07/24 07:45 03/07/24 07:51 03/07/24 10:10
Physical Exam
Constitutional: No Acute Distress
Cardiovascular: Regular Rate and S1/S2; Negative Murmur or Rub
Pulmonary: Clear and Symmetric; Negative Wheezes or Rales
Gastrointestinal: Soft, Non Tender, Non Distended and Normal Bowel Sounds
Skin: Warm and Dry; Negative Rash or Jaundice
Objective Data
Lab Data
Lab Results
03/07/24 06:53
03/07/24 06:53
Estimated Creat Clear > 125 ml/min 03/07/24 06:53
Total Bilirubin 0.2 mg/dl (0.2-1.3) 03/07/24 06:53
AST 30 U/L (17-59) 03/07/24 06:53
ALT 31 U/L (0-50) 03/07/24 06:53
Alkaline Phosphatase 47 U/L (38-126) 03/07/24 06:53
Most recent labs reviewed.
Micro Results:
03/04/24 17:41 Blood Culture - Preliminary
Blood/Venous No Growth in 48 hours- Final report to follow
03/04/24 16:33 Blood Culture - Preliminary
Blood/Venous No Growth in 48 hours- Final report to follow
Care Review
Plan reviewed with: Physician (Dr Caceres - surgery)
--- NOTE | 2024-03-07 12:30 | W.PN.HOSP.TC ---
Today's Communication/Plan
-
OR today
IV abx
further course based on Op finding
Assessment / Plan
Assessment / Plan
33yo M with PMHx of seizure d/o, anxiety came after he stepped on the thorns 1 week ago, his PCP took most thorns out, however he developed couple of sports with pain and redness. there are few areas with inflammation and central foreign body on
both soles. No fevers noted. As per ED communication with ID - started Unasyn, pending I&D by podiatry on 03/07/24 at 4pm
Also c/o long standing HX of anxiety that he is medicating with marijuana, psychiatry recommended Atarax and avoid outpatient BZD
A/P:
#B/L LE cellulitis with foreign bodies
Unasyn
Bcx NTD
ID consult: IV unasyn for now. Await further OP note
Podiatry consult OR later today.
MRI done in ED - no concern for abscess, but phlegmon present
#Anxiety
Xanax PRN-stop on dc
atarax 50mg prn
Psych consult
#Seizure d/o
Seizure precautions
cont home meds
#Nicotine use
vaping
declined Nicoderm
DVT ppx lovenox
Full code
Anticipated Discharge: Within 24 hours
Subjective/Interval History
-
Date of Service: March 07, 2024
denies any leg pain
Objective Data
-
Labs:
Laboratory Results
03/07/24
06:53
WBC 7.8
Hgb 16.6
Hct 46.3
Plt Count 224
Sodium 142
Potassium 4.4
Chloride 104
Carbon Dioxide 27
BUN 14
Creatinine 0.8
Glucose 84
Calcium 9.4
Total Bilirubin 0.2
AST 30
ALT 31
Alkaline Phosphatase 47
Vital Signs:
Vital Signs
Temp Pulse Resp BP Pulse Ox
97.9 F 70 21 123/82 95
03/07/24 07:45 03/07/24 07:51 03/07/24 07:45 03/07/24 07:51 03/07/24 10:10
I&O
03/06/24 03/07/24 03/08/24
06:59 06:59 06:59
Intake Total 1440 / 1440 1440 / 1440 120 / 120
Output Total 400 / 400
Balance 1440 / 1440 1040 / 1040 120 / 120
Physical Exam
-
General: Well Developed, Well Nourished and No Apparent Distress
HEENT: Normocephalic, Atraumatic and Moist Mucous Membranes
Respiratory: Clear to Auscultation
Cardiac: Regular Rhythm and S1/S2
GI: Soft, Nontender, Nondistended and Normal Bowel Sounds
Skin: Rash (B/L Foot and R dumont scrathes/abrasion noted )
Neuro: Awake, Alert, Oriented and AO x 3
Psych: Calm
--- NOTE | 2024-03-07 16:56 | CM ---
Chart reviewed and patient is for possible OR today.
Plan; Home no needs.
--- NOTE | 2024-03-07 17:30 | W.PN.SURGUPD ---
Surgical Update
Surgical Update
s/p bilateral foot foreign body removal
-Culture obtained of right leg wound at site of thorn removal
-Antibiotics per infectious disease recommendations
-WBAT in surgical shoes bilaterally
-Dressings can be removed in 48 hours. Apply neosporin or triple antibiotic to thorn removal sites with MAZIN bandage vs bandaids
-Follow up at [facility] in 1-2 weeks
[2024-03-07] MEDS: NEURONTIN PO (17:43)
--- NOTE | 2024-03-07 18:05 | TRANSFER ---
Received patient from PACU via bed. Pt AAOX3. Pox: 99% RA. Patient denies pain/SOB. B/l foot dressing CDI. Call lobo within reach. Plan of care ongoing.
[2024-03-07] MEDS: LOVENOX 40 MG SC (18:33)
[2024-03-07] MEDS: ROXICODONE 5 MG PO (20:27)
[2024-03-07] MEDS: REMERON 15 MG PO (22:10)
[2024-03-07] MEDS: MELATONIN 3 MG PO (22:13)
[2024-03-08] MEDS: XANAX 0.5 MG PO ×2 (01:57→08:19)
[2024-03-08] MEDS: UNASYN IV ×2 (03:55→09:25)
[2024-03-08 04:07] VITALS: BP 110/57
[2024-03-08] MEDS: ROXICODONE 5 MG PO ×2 (04:13→08:19)
[2024-03-08 08:01] VITALS: BP 115/75
[2024-03-08] MEDS: NEURONTIN 200 MG PO (08:19)
[2024-03-08] MEDS: RITALIN 20 MG PO (08:19)
[2024-03-08] MEDS: CATAPRES 0.1 MG PO (08:22)
[2024-03-08] MEDS: POLYSPORIN/DOUBLE ANTIBIOTIC 1 APPLIC TOPICAL (10:37)
--- NOTE | 2024-03-08 11:02 | W.PN.HOSP.TC ---
Today's Communication/Plan
-
po abx
op podiatry f/u
Assessment / Plan
Assessment / Plan
33yo M with PMHx of seizure d/o, anxiety came after he stepped on the thorns 1 week ago, his PCP took most thorns out, however he developed couple of sports with pain and redness. there are few areas with inflammation and central foreign body on
both soles. No fevers noted. As per ED communication with ID - started Unasyn, pending I&D by podiatry on 03/07/24 at 4pm
Also c/o long standing HX of anxiety that he is medicating with marijuana, psychiatry recommended Atarax and avoid outpatient BZD
A/P:
#B/L LE cellulitis with foreign bodies
Unasyn
Bcx NTD
ID consult: IV unasyn for inpatient and switch to po Augmentin for 2 more weeks
Podiatry consult s/o OR for foreign body removal.
MRI done in ED - no concern for abscess, but phlegmon present
WBAT with surgical shoes
dressing change per podiatry recs.
#Anxiety
Xanax PRN-stop on dc
atarax 50mg prn
Psych consult
#Seizure d/o
Seizure precautions
cont home meds
#Nicotine use
vaping
declined Nicoderm
DVT ppx lovenox
Full code
More than 30 minutes spent in discharge including
Final examination of the patient
Summarizing hospital stay
Instructions for continuing care to all relevant caregivers
Preparation of discharge records, prescriptions, and referral forms
Total time spent (in minutes): 42
Anticipated Discharge: Today
Subjective/Interval History
-
Date of Service: March 08, 2024
Mild pain and decrease sensation left foot 5th toe
no pain or change in color of toes
Objective Data
-
Vital Signs:
Vital Signs
Temp Pulse Resp BP Pulse Ox
98.0 F 67 21 115/75 98
03/08/24 08:01 03/08/24 08:01 03/08/24 08:01 03/08/24 08:01 03/08/24 08:01
I&O
03/07/24 03/08/24 03/09/24
06:59 06:59 06:59
Intake Total 1440 / 1440 650 / 650
Output Total 400 / 400
Balance 1040 / 1040 650 / 650
--- NOTE | 2024-03-08 11:13 | CM ---
Patient seen bedside, reports he is discharging today, requesting FMLA paperwork to be completed by Hospitalist. Forms completed, placed in patients chart. CM will continue to be available, will follow for all discharge planning needs.
Plan; home no needs.
--- NOTE | 2024-03-08 11:16 | W.DCSUMMARY ---
Discharge Summary
Discharge Data
Date of Admission: 03/04/24
Date of Discharge: 03/08/24
-
Pending Results: No
Hospital Course
33-year-old male past medical history of severe anxiety, ADHD who is presenting from home with complaints of bilateral foot pain. [place] a [place] and stepped onto a plant with thorns on it. Upon
admission patient was started on broad-spectrum antibiotics. Infectious disease and podiatry was consulted. MRI was negative for acute osteomyelitis. Patient went to the operating room where bilateral complex foreign body removals x10 large
foreign bodies and 30 small foreign bodies were removed. IV Unasyn was transitioned to p.o. Augmentin on discharge. Plan will be to continue antibiotics for 2 more weeks. Dressing changes as recommended by podiatry. Patient was also eval by
psychiatry for severe anxiety and recommended hydroxyzine daily as needed. Patient be discharged home with recommendation to follow-up outpatient with podiatry and his primary psychiatry.
Discharge Plan
-
Patient Disposition: Home (Routine Discharge)
Discharge Diagnosis/Procedures: Bilateral feet Cellulitis secondary to foreign body
Bilateral complex foreign body removals x10 and large foreign bodies and 30 small foreign bodies.
Condition: Fair
Diet: As tolerated
Activity: As tolerated
Driving Restrictions: Not until seen by your Dr
Activity Restrictions/Additional Instructions:
WBAT in surgical shoes bilaterally
- Apply neosporin or triple antibiotic to thorn removal sites with MAZIN bandage vs bandaids
-Follow up at [facility] in 1-2 weeks
Referrals:
Mira Tsai PA-C [Family Provider] - in less than 1 week
Arron Ackerman MD [Active] - in one to two weeks (call to make appt. )
Prescriptions:
New
hydroxyzine HCl 50 mg tablet
50 mg PO DAILY PRN (Reason: anxiety) Qty: 15 0RF
amoxicillin-pot clavulanate 875-125 mg tablet
1 tab PO Q12H 14 Days Qty: 28 0RF
bacitracin zinc-polymyxin B [Double Antibiotic (b.tracn Zn)] 500-10,000 unit/gram Ointment
1 applic topical DAILY 14 Days Qty: 14.2 0RF
Continued
clonidine HCl 0.1 mg Tablet
0.1 mg PO BID
methylphenidate HCl 20 mg tablet
20 mg PO BID
melatonin 3 mg Tablet
3 mg PO HS
mirtazapine 15 mg Tablet
15 mg PO HS
gabapentin 100 mg Capsule
100 mg PO TID
Medical Marijuana
2 puff inhalation DAILY
Discontinued
cephalexin 500 MG capsule
500 mg PO QID
Discharge Orders:
Discharge Patient (As Directed); Ordered 03/08/24
Ordered By: Mert Mena
Discharge Date and Time
Discharge Date/Time: 03/08/24 12:55
Print Language: DUTCH
--- NOTE | 2024-03-08 11:24 | W.PN.ID1 ---
Date of Service
Date of Service: March 08, 2024
Today's Communication
- switched to augmentin for 2 week course
- follow up with PCP
Assessment / Plan
Abscesses and Cellulitis related to foreign bodies of the bilateral feet
Hyperglycemia
Substance abuse
- blood cultures x2 in progress no growth to date
- OR culture gram stain negative, culture in progress
- switched to augmentin for 2 week course
- follow up with PCP
Chief Complaint
-: Other (cellulitis of foot due to foreign bodies)
Subjective / Review of Systems
afebrile
bp stable
s/p successful debridement and removal of foreign bodies
Vital Signs / Physical Exam
Vital Signs
Vital Signs
Temp Pulse Resp BP Pulse Ox
98.0 F 67 21 115/75 98
03/08/24 08:01 03/08/24 08:01 03/08/24 08:01 03/08/24 08:01 03/08/24 08:01
Physical Exam
Constitutional: No Acute Distress
Cardiovascular: Regular Rate and S1/S2; Negative Murmur or Rub
Pulmonary: Clear and Symmetric; Negative Wheezes or Rales
Gastrointestinal: Soft, Non Tender, Non Distended and Normal Bowel Sounds
Skin: Warm and Dry; Negative Rash or Jaundice
Objective Data
Lab Data
Lab Results
03/07/24 06:53
03/07/24 06:53
Estimated Creat Clear > 125 ml/min 03/07/24 06:53
Total Bilirubin 0.2 mg/dl (0.2-1.3) 03/07/24 06:53
AST 30 U/L (17-59) 03/07/24 06:53
ALT 31 U/L (0-50) 03/07/24 06:53
Alkaline Phosphatase 47 U/L (38-126) 03/07/24 06:53
Most recent labs reviewed.
Micro Results:
03/07/24 16:50 Wound Culture - Pending
Leg - Right Gram Stain - Preliminary
03/04/24 17:41 Blood Culture - Preliminary
Blood/Venous No Growth in 72 hours- Final report to follow
03/07/24 16:50 Anaerobic Culture - Pending
Leg - Right
03/04/24 16:33 Blood Culture - Preliminary
Blood/Venous No Growth in 72 hours- Final report to follow
[2024-03-08 11:30] VITALS: BP 118/72
[2024-03-08] MEDS: AUGMENTIN 875 MG/125 MG 1 TABLET PO (11:42)
== END 2024-03-08 12:55 | disposition home or self-care (01) | DRG 571 ==
LOC: 4 WEST ACU 17:57
PROVIDERS: Physician Assistant; Student in an Organized Health Care Education/Training Program; ADMITTING PHYSICIAN Internal Medicine; ATTENDING PHYSICIAN Hospitalist; CONSULT PHYSICIAN Student in an Organized Health Care Education/Training Program; EMERGENCY PHYSICIAN Emergency Medicine; FAMILY PHYSICIAN Physician Assistant Medical; OTHER PHYSICIAN Psychiatry & Neurology Psychiatry
PROC: 0JBQ0ZZ Excision of Right Foot Subcutaneous Tissue and Fascia, Open Approach (ICD-10-PCS; 2024-03-07)
PROC: 0JBR0ZZ Excision of Left Foot Subcutaneous Tissue and Fascia, Open Approach (ICD-10-PCS; 2024-03-07)
DX: L03.115 Cellulitis of right lower limb (principal); L02.611 Cutaneous abscess of right foot; L02.612 Cutaneous abscess of left foot; L03.116 Cellulitis of left lower limb; F32.A Depression, unspecified; G40.909 Epilepsy, unspecified, not intractable, without status epilepticus; F41.9 Anxiety disorder, unspecified; F90.9 Attention-deficit hyperactivity disorder, unspecified type; G47.9 Sleep disorder, unspecified; F17.290 Nicotine dependence, other tobacco product, uncomplicated; S90.851A Superficial foreign body, right foot, initial encounter; S90.852A Superficial foreign body, left foot, initial encounter; W19.XXXA Unspecified fall, initial encounter
CPT/HCPCS: 88300; 73720; 80053; 82077; 83036; 85025; 87040; 87070; 87075; 87205; 87389; 96365; 99284; A9575